=== PATIENT | male | born 1960 | race Asian ===

== ENCOUNTER 2017-09-09 13:13 | Emergency (ER) | payer OTHER ==
[~2017-09-09] VITALS: Ht 175.3 cm; Wt 70.0 kg
[2017-09-09 13:16] VITALS: Ht 175.3 cm; Wt 70.0 kg
--- NOTE | 2017-09-09 13:45 | EMERGENCY ROOM VISIT NOTE ---
ED Visit Note First contact with patient: 13:21 CHIEF COMPLAINT: Right calf injury 2 hours ago HISTORY OF PRESENT ILLNESS: Patient is an otherwise healthy 57-year-old male who presents emergency department accompanied by his for evaluation of right medial calf pain. Patient relates that he [place] about 2 hours ago, when he felt a snapping sensation in the medial right calf with the acute onset of pain and inability to bear weight. He applied ice to the area and elevated his leg above the level of his heart. He states that he is able to put some weight on the leg but it is painful. He denies noticing any bruising or discoloration. He has never had symptoms similar to this previously, although he does note that a couple of times in last month he woke up overnight with cramping in the right calf. He rates his discomfort a 3/10. He did not use any medications for pain today. REVIEW OF SYSTEMS: Review of systems as per HPI. All other systems reviewed were negative. 10 systems reviewed. PMH: Electronic medical records are reviewed and summarized as above/below. See Problem List. SOCIAL HISTORY: Patient lives at home with his . Employed. PHYSICAL EXAM: Vital Signs: Reviewed Nurse's notes. MENTAL STATUS: Patient is a pleasant, well-appearing 57-year-old male who is awake and alert and may operate on the gurney in no acute distress. His is at the bedside. MUSCULOSKELETAL: Examination of the right lower extremity does not reveal any obvious deformity. There is no right knee effusion, knee is nontender flexion and extension are full. The right ankle is not swollen, is nontender to palpation. The patient has reproducible tenderness to discomfort in the midportion of the medial right gastrocnemius muscle. There is a slight defect of the muscle belly palpable. The Achilles tendon is palpated, without defect and is not tender to palpation. The patient has pain with dorsiflexion primarily, also some pain with plantarflexion of the right ankle. The right lower extremity is neurovascularly intact. EMERGENCY DEPARTMENT COURSE: The patient was seen and assessed as above. Clinically he appears to have strained the medial right calf muscle. Supportive care measures were discussed. The patient was encouraged to continue compressive bandage and to ice, and was issued crutches to help with ambulation until his pain improves. He does not have any evidence to indicate an Achilles tendon rupture. Crutches were issued and patient was instructed on a non weight bearing gait. He is established with orthopedics and was encouraged to follow-up with them if he does not feel that his symptoms are improving in a timely manner. Differential diagnosis also included fracture, sprain, strain, contusion, among others. Medication reconciliation: I attest that I have personally reviewed the patient' s current medication list. Blood pressure screening : Patient was found to have normal blood pressure on screening and does not require follow-up. Problem List Medical Problems: (1) BPH (benign prostatic hyperplasia) Status: Chronic Surgical Problems: (1) H/O arthroscopic knee surgery Status: Resolved Allergies Coded Allergies: Amoxicillin (Verified Adverse Reaction, Mild, RASH, 09/09/17) Vital Signs Date Time Temp Pulse Resp B/P (MAP) Pulse Ox O2 Delivery O2 Flow Rate FiO2 09/09/17 14:11 80 17 140/89 97 09/09/17 13:16 36.8 80 17 140/89 97 Room Air Departure Information Impression Primary Impression: Strain of calf muscle Patient Instructions [facility] Additional Instructions Ibuprofen(Motrin, Advil) may be used for fever or pain. Use 600mg every six hours as needed. Take with food. Avoid using more than 2400mg in a 24 hour period. Do not use 2400mg per day for more than three consecutive days without physician direction. Prolonged inappropriate use can lead to stomach upset or ulcers. This medication can be taken if you need to drive, work, or perform activities which may be dangerous when taking narcotic pain medication. (AND/OR) Acetaminophen(Tylenol) may be used for fever or pain. Use 1000mg every six hours as needed. Avoid using more than 3000mg in a 24 hour period. This medication can be taken if you need to drive, work, or perform activities which may be dangerous when taking narcotic pain medication. Ice compresses for 20 minutes at a time four times daily for 2-3 days. Use the crutches as instructed. Rest and elevate your injury. Continue current medications. Return to the ER immediately for any numbness, tingling, severe pain, extreme swelling in the extremity or as needed. Follow-up with your primary care physician or with your orthopedic surgeon for further care and management if you do not feel that your symptoms are improving in the next 7-10 days. Problem Qualifiers Primary Impression: Strain of calf muscle Encounter type: initial encounter Laterality: right Qualified Codes: S86.811A - Strain of other muscle(s) and tendon(s) at lower leg level, right leg , initial encounter
[2017-09-09 14:11] VITALS: BP 140/89; PULSE 80; O2SAT 97
== END 2017-09-09 14:12 | disposition home or self-care (01) ==
LOC: C.EDB 13:16 → C.EDD 14:12
DX: S86.811A Strain of other muscle(s) and tendon(s) at lower leg level, right leg, initial encounter (principal); W17.81XA Fall down embankment (hill), initial encounter; Y93.53 Activity, golf; N40.0 Benign prostatic hyperplasia without lower urinary tract symptoms; Z88.0 Allergy status to penicillin